=== PATIENT | female | born 1990 | race Two or more races ===

== ENCOUNTER 2021-09-30 15:24 | Emergency (ER) | payer BC ==
[2021-09-30 15:36] VITALS: TEMP 98.1
[2021-09-30] MEDS ORDERED: SODIUM CHLORIDE 0.9% 1,000 ML IV STA (17:08)
[2021-09-30] MEDS ORDERED: ONDANSETRON 4 MG/2 ML VIAL IVP STA (17:35)
[2021-09-30 18:15] VITALS: BP 121/79; PULSE 85; RESP 16
[2021-09-30 18:18] LABS: Basophils % (A) 0 %; Eosinophils # (A) 0.2 k/uL (0-0.7); Eosinophils % (A) 2 %; HGB 13.4 gm/dL (11.4-16.0); Lymphocytes # (A) 2.2 k/uL (1.0-4.8); Lymphocytes % (A) 22 %; MCH 27.7 pg (25.0-35.0); MCHC 31.9 g/dL (31.0-37.0); MCV 86.9 fL (80.0-100.0); Mean Platelet Volume 8.9; Monocytes # (A) 0.5 k/uL (0-1.0); Monocytes % (A) 5 %; Neutrophils # (A) 7.1 k/uL (1.3-7.7); Neutrophils % (A) 71 %; Platelet Count 298 k/uL (150-450); RBC 4.83 m/uL (3.80-5.40); RDW 13.4 % (11.5-15.5)
[2021-09-30 18:26] LABS: INR 0.9 (<1.2); Partial Thromboplastin Time 23.5 sec (22.0-30.0); Prothrombin Time 9.6 sec (9.0-12.0)
[2021-09-30 18:33] LABS: ALT 21 U/L (4-34); AST 29 U/L (14-36); African American GFR (CKD) >90 (>60 ml/min/1.73 sqM); Alkaline Phosphatase 78 U/L (38-126); Amylase 95 U/L (30-110); Anion Gap 10 mmol/L; Blood Urea Nitrogen 10 mg/dL (7-17); Calcium 10.1 mg/dL (8.4-10.2); Carbon Dioxide 25 mmol/L (22-30); Chloride 103 mmol/L (98-107); Glucose 91 mg/dL (74-99); Lipase 50 U/L (23-300); Non-African American GFR(CKD) >90 (>60 ml/min/1.73 sqM); Potassium 4.2 mmol/L (3.5-5.1); Sodium 138 mmol/L (137-145); Total Bilirubin 0.8 mg/dL (0.2-1.3); Total Protein 8.7 g/dL (6.3-8.2)
[2021-09-30 19:06] LABS: HCG,Qualitative Serum Not Detected
--- NOTE | 2021-09-30 19:44 | ED ---
General Adult HPI - General Chief complaint: GI Bleed Stated complaint: Rectal Bleeding Time Seen by Provider: 09/30/21 17:07 Source: patient Mode of arrival: ambulatory Limitations: no limitations - History of Present Illness Initial comments: Patient is a 31-year-old female who recently immigrated from [place] presents emergency Department complaining of GI bleed. As noticed some mild bright red blood per rectum is located on the paper and around her stool the last few days. Associated with this some mild nausea. Does have some painful stooling, however denies constipation. Denies any changes in urination. Denies being . Endorses nausea but no episodes of emesis. Denies chest pain or shortness breath. Denies any fevers. States this is not occurred previously. Is not on blood thinners. Presents for further evaluation and she is uncertain what is causing it. No known past medical history.Denies any lightheadedness. Denies any syncopal episodes. - Related Data Previous Rx's Medication Instructions Recorded Docusate Sodium [Dok] 100 mg PO BID 14 Days #28 capsule 09/30/21 Ondansetron Odt [Zofran Odt] 4 mg PO Q8HR PRN 3 Days #9 tab 09/30/21 Allergies Allergy/AdvReac Type Severity Reaction Status Date / Time No Known Allergies Allergy Verified 09/30/21 15:36 Review of Systems ROS Statement: Those systems with pertinent positive or pertinent negative responses have been documented in the HPI. Review of Systems: CONST: Denies fever EYES: Denies blurry vision ENT: Denies nasal congestion C/V: Denies Chest pain RESP: Denies shortness of breath GI: Denies abdominal pain : Denies dysuria SKIN: Denies rash. MSK: Denies joint pain. NEURO: Denies headache ROS Other: All systems not noted in ROS Statement are negative. Past Medical History Past Medical History: No Reported History History of Any Multi-Drug Resistant Organisms: None Reported Past Surgical History: No Surgical Hx Reported Past Psychological History: No Psychological Hx Reported Smoking Status: Never smoker Past Alcohol Use History: None Reported Past Drug Use History: None Reported General Exam - General Exam Comments Initial Comments: General: Appears in no acute distress. HEAD: Normal with no signs of head trauma. EYES: PERRLA, EOMI, conjunctiva normal, no discharge. No conjunctival pallor. ENT: Hearing grossly intact, normal oropharynx. RESPIRATORY: Clear breath sounds bilaterally. No wheezes, rales, or rhonchi. C/V: Regular rate and rhythm. S1 and S2 auscultated, no edema, peripheral pulses 2+ and intact throughout ABD: Abd is soft, nontender, nondistended. Rectal exam performed in the presence of a female staff member. Patient does have external hemorrhoids present. Not actively bleeding. Good rectal tone. No gross blood on exam. Occult was sent for evaluation. EXT: Normal range of motion, no obvious deformity SKIN: No rashes or lesions observed on exposed skin. NEURO: Alert and oriented 4. No focal deficits. Limitations: no limitations Course Vital Signs 09/30/21 09/30/21 15:34 18:13 Temperature 98.1 F Pulse Rate 111 H 85 Respiratory 20 16 Rate Blood Pressure 129/82 121/79 O2 Sat by Pulse 100 100 Oximetry Medical Decision Making - Medical Decision Making Based on the patient's presentation and physical exam, I'm concerned for possible GI bleed. She does have external hemorrhoids. Does not appear to be significant as the patient is relatively minor symptoms otherwise. Vital signs within normal limits. Recommended abdominal laboratory studies, fecal occult blood. She was in agreement this plan. We'll provide her with a 1 L fluid bolus as well as Zofran. Laboratory studies remarkable for hemoglobin within normal limits at 13.4. Coags were within normal limits. Printed test is negative. Remainder the labs are unremarkable. Stool occult blood is positive. I discussed the findings with the patient as well as her . Discussed that it could be secondary to hemorrhoids but no Definite cause at this time. Patient is stable, with stable hemoglobin is within normal limits. I do not believe she needs to be admitted at this time but did recommend follow-up with her PCP. Also recommended that we start her on stool softeners and I will provide her with odt Zofran. She was in agreement this plan. I will provide the patient with a prescription for ODT Zofran, docusate. I instructed the patient to follow up with their PCP in the next 1-3 days. I provided contact information for follow up with a new PCP who will connect her with a GI doctor. I explained that the patient should return to the emergency department if they experience any worsening symptoms. Strict return precautions were discussed with the patient. The patient expressed understanding of these in structions. I answered all questions that the patient had. The patient was discharged home in good condition with their prescriptions and follow up information. - Lab Data Result diagrams: 09/30/21 17:58 09/30/21 17:58 Lab Results 09/30/21 09/30/21 09/30/21 Range/Units 17:58 17:58 17:58 WBC 10.0 (3.8-10.6) k/uL RBC 4.83 (3.80-5.40) m/uL Hgb 13.4 (11.4-16.0) gm/dL Hct 42.0 (34.0-46.0) % MCV 86.9 (80.0-100.0) fL MCH 27.7 (25.0-35.0) pg MCHC 31.9 (31.0-37.0) g/dL RDW 13.4 (11.5-15.5) % Plt Count 298 (150-450) k/uL MPV 8.9 Neutrophils % 71 % Lymphocytes % 22 % Monocytes % 5 % Eosinophils % 2 % Basophils % 0 % Neutrophils # 7.1 (1.3-7.7) k/uL Lymphocytes # 2.2 (1.0-4.8) k/uL Monocytes # 0.5 (0-1.0) k/uL Eosinophils # 0.2 (0-0.7) k/uL Basophils # 0.0 (0-0.2) k/uL PT 9.6 (9.0-12.0) sec INR 0.9 (<1.2) APTT 23.5 (22.0-30.0) sec Sodium 138 (137-145) mmol/L Potassium 4.2 (3.5-5.1) mmol/L Chloride 103 (98-107) mmol/L Carbon Dioxide 25 (22-30) mmol/L Anion Gap 10 mmol/L BUN 10 (7-17) mg/dL Creatinine 0.65 (0.52-1.04) mg/dL Est GFR (CKD-EPI)AfAm >90 (>60 ml/min/1.73 sqM) Est GFR (CKD-EPI)NonAf >90 (>60 ml/min/1.73 sqM) Glucose 91 (74-99) mg/dL Calcium 10.1 (8.4-10.2) mg/dL Total Bilirubin 0.8 (0.2-1.3) mg/dL AST 29 (14-36) U/L ALT 21 (4-34) U/L Alkaline Phosphatase 78 (38-126) U/L Total Protein 8.7 H (6.3-8.2) g/dL Albumin 5.0 (3.5-5.0) g/dL Amylase 95 (30-110) U/L Lipase 50 (23-300) U/L HCG, Qual Not Detected Stool Occult Blood (Negative) 09/30/21 Range/Units 17:58 WBC (3.8-10.6) k/uL RBC (3.80-5.40) m/uL Hgb (11.4-16.0) gm/dL Hct (34.0-46.0) % MCV (80.0-100.0) fL MCH (25.0-35.0) pg MCHC (31.0-37.0) g/dL RDW (11.5-15.5) % Plt Count (150-450) k/uL MPV Neutrophils % % Lymphocytes % % Monocytes % % Eosinophils % % Basophils % % Neutrophils # (1.3-7.7) k/uL Lymphocytes # (1.0-4.8) k/uL Monocytes # (0-1.0) k/uL Eosinophils # (0-0.7) k/uL Basophils # (0-0.2) k/uL PT (9.0-12.0) sec INR (<1.2) APTT (22.0-30.0) sec Sodium (137-145) mmol/L Potassium (3.5-5.1) mmol/L Chloride (98-107) mmol/L Carbon Dioxide (22-30) mmol/L Anion Gap mmol/L BUN (7-17) mg/dL Creatinine (0.52-1.04) mg/dL Est GFR (CKD-EPI)AfAm (>60 ml/min/1.73 sqM) Est GFR (CKD-EPI)NonAf (>60 ml/min/1.73 sqM) Glucose (74-99) mg/dL Calcium (8.4-10.2) mg/dL Total Bilirubin (0.2-1.3) mg/dL AST (14-36) U/L ALT (4-34) U/L Alkaline Phosphatase (38-126) U/L Total Protein (6.3-8.2) g/dL Albumin (3.5-5.0) g/dL Amylase (30-110) U/L Lipase (23-300) U/L HCG, Qual Stool Occult Blood Positive H (Negative) Disposition Clinical Impression: GI bleed, External hemorrhoid, Fecal occult blood test positive Disposition: HOME SELF-CARE Condition: Good Instructions (If sedation given, give patient instructions): Gastrointestinal Bleeding (ED) Prescriptions: Docusate Sodium [Dok] 100 mg PO BID 14 Days #28 capsule Ondansetron Odt [Zofran Odt] 4 mg PO Q8HR PRN 3 Days #9 tab PRN Reason: Nausea Is patient prescribed a controlled substance at d/c from ED?: No Referrals: None,Stated [Primary Care Provider] - 1-2 days Claudia Turpin MD [REFERRING] - 1-2 days Time of Disposition: 19:30
== END 2021-09-30 21:01 | disposition home or self-care (01) ==
LOC: EC 15:24
DX: K64.4 Residual hemorrhoidal skin tags (principal)
CPT/HCPCS: 99284; 96374; 96361; 36415; 80053; 82150; 83690; 85025; 85610; 85730; 82272; 84703; J2405

== ENCOUNTER 2022-10-23 15:52 | Emergency (ER) | payer BC ==
[2022-10-23 17:23] VITALS: RESP 18; TEMP 98.3
--- NOTE | 2022-10-23 17:23 | ED ---
Abdominal Pain HPI - General Chief Complaint: Abdominal Pain Stated Complaint: abd pain,5 weeks preg Time Seen by Provider: 10/23/22 16:57 Source: patient, family Mode of arrival: ambulatory Limitations: no limitations - History of Present Illness Initial Comments: Patient is a 32 year female who has a history of hemorrhoids but otherwise healthy presents emergency room with complaint by her for abdominal pain and . Patient is roughly 6 weeks and presents with diffuse abdominal pain for the last 4 days. Patient states that the pain moves around. She denies any nausea vomiting dysuria, hematuria or urinary frequency. Denies any cough congestion fevers. Denies any vaginal bleeding or vaginal discharge. Patient is taking vitamins. last menstrual period September 10. Patient is unable to get in with the OBGYN at this time, she is on a waitlist. She is O+. Location: diffuse - Related Data Previous Rx's Medication Instructions Recorded Docusate Sodium [Dok] 100 mg PO BID 14 Days #28 capsule 09/30/21 Ondansetron Odt [Zofran Odt] 4 mg PO Q8HR PRN 3 Days #9 tab 09/30/21 Allergies Allergy/AdvReac Type Severity Reaction Status Date / Time No Known Allergies Allergy Verified 10/23/22 16:11 Review of Systems ROS Statement: Those systems with pertinent positive or pertinent negative responses have been documented in the HPI. ROS Other: All systems not noted in ROS Statement are negative. Gastrointestinal: Reports: abdominal pain Past Medical History Past Medical History: No Reported History History of Any Multi-Drug Resistant Organisms: None Reported Past Surgical History: No Surgical Hx Reported Past Psychological History: No Psychological Hx Reported Smoking Status: Never smoker Past Alcohol Use History: None Reported Past Drug Use History: None Reported General Exam Limitations: no limitations General appearance: alert, in no apparent distress Head exam: Present: atraumatic Eye exam: Present: normal appearance ENT exam: Present: normal exam Neck exam: Present: normal inspection Respiratory exam: Present: normal lung sounds bilaterally Cardiovascular Exam: Present: regular rate, normal rhythm GI/Abdominal exam: Present: other (mild distention, no significant pain with palpation, no rebound tenderness or peritoneal signs) Neurological exam: Present: alert, altered, oriented X3 Psychiatric exam: Present: normal affect Skin exam: Present: warm, dry Course Vital Signs 10/23/22 10/23/22 10/23/22 16:12 17:22 18:32 Temperature 97.8 F 98.3 F Pulse Rate 84 83 81 Respiratory 16 18 18 Rate Blood Pressure 119/70 104/69 106/73 O2 Sat by Pulse 100 100 100 Oximetry - Reevaluation(s) Reevaluation #1: 10/23/22 18:22 Discussed patient's labs and ultrasound. As the patient has no intrauterine mass with no developed pole or heart tones at this time patient will need reevaluation including serial hCG quantitative and repeat ultrasound in about one week. I did discuss following up with PCP or [facility] for reevaluation. Discussed signs to return to the emergency room. I did speak with attending physician Dr. Sanchez regarding patient's symptoms are Pending disposition. Medical Decision Making - Medical Decision Making Was pt. sent in by a medical professional or institution (, PA, PRACTICE MANAGEMENT CONSULTANT, urgent care, hospital, or care home...) When possible be specific @ -Sent in by PCP as she is on a waitlist for OBs Did you speak to anyone other than the patient for history (EMS, parent, family, police, friend...)? What history was obtained from this source @ - Did you review nursing and triage notes (agree or disagree)? Why? @ -[I reviewed and agree with nursing and triage notes] Were old charts reviewed (outside hosp., previous admission, EMS record, old EKG, old radiological studies, urgent care reports/EKG's, care home records)? Report findings @ -Yesterday old charts are reviewed Differential Diagnosis (chest pain, altered mental status, abdominal pain women, abdominal pain men, vaginal bleeding, weakness, fever, dyspnea, syncope, headache, dizziness, GI bleed, back pain, seizure, CVA, palpatations, mental health, musculoskeletal)? @ -Urinary tract infection, changes, threatened , incomplete EKG interpreted by me (3pts min.). @ -[As above] X-rays interpreted by me (1pt min.). @ -[None done] CT interpreted by me (1pt min.). @ -[None done] U/S interpreted by me (1pt. min.). @ -No obvious masses however radiology report is pending for confirmation of acute changes and intrauterine as my review is limited What testing was considered but not performed or refused? (CT, X-rays, U/S, labs)? Why? @ -[None] What meds were considered but not given or refused? Why? @ -[None] Did you discuss the management of the patient with other professionals (professionals i.e. , PA, PRACTICE MANAGEMENT CONSULTANT, lab, RT, psych nurse, school social worker, community health outreach worker, teacher, chief merchandising officer, case loader operator)? Give summary @ -Spoke with attending ED physician Dr Sanchez regarding patient's symptoms workup and management today. Was smoking cessation discussed for >3mins.? @ -[No] Was critical care preformed (if so, how long)? @ -[No] Were there social determinants of health that impacted care today? How? (Homelessness, low income, unemployed, alcoholism, drug addiction, transportation, low edu. Level, literacy, decrease access to med. care, detention, rehab)? @ -[No] Was there de-escalation of care discussed even if they declined (Discuss DNR or withdrawal of care, Hospice)? DNR status @ -[No] What co-morbidities impacted this encounter? (DM, HTN, Smoking, COPD, CAD, Cancer, CVA, ARF, Chemo, Hep., AIDS, mental health diagnosis, sleep apnea, morbid obesity)? @ -[None] Was patient admitted / discharged? Hospital course, mention meds given and route, prescriptions, significant lab abnormalities, going to OR and other pertinent info. @ -Patient discharged home as she may follow up with [facility] as an outpatient or PCP. She understands she is to follow-up for serial hCG quantitative and re peat ultrasound. She does understand signs to return to the emergency room including but not limited to any worsening pain, heavy vaginal bleeding, near syncope, dizziness or new concerning symptoms. Undiagnosed new problem with uncertain prognosis? @ -Yes, early versus ectopic versus threatened Drug Therapy requiring intensive monitoring for toxicity (Heparin, Nitro, Insulin, Cardizem)? @ -[No] Were any procedures done? @ -[No] Diagnosis/symptom? @ -Abdominal pain and , threatened , early versus ectopic Acute, or Chronic, or Acute on Chronic? @ -Acute Uncomplicated (without systemic symptoms) or Complicated (systemic symptoms)? @ -Complicated Side effects of treatment? @ -[No] Exacerbation, Progression, or Severe Exacerbation? @ -[No] Poses a threat to life or bodily function? How? (Chest pain, [place], [place], pneumonia, PE, COPD, DKA, ARF, appy, cholecystitis, CVA, Diverticulitis, Homicidal, Suicidal, threat to staff... and all critical care pts) @ -[No] - Lab Data Result diagrams: 10/23/22 17:23 10/23/22 17:23 Lab Results 10/23/22 10/23/22 10/23/22 Range/Units 17: 17: 17:23 WBC 7.4 (3.8-10.6) k/uL RBC 4.05 (3.80-5.40) m/uL Hgb 11.8 (11.4-16.0) gm/dL Hct 34.7 (34.0-46.0) % MCV 85.7 (80.0-100.0) fL MCH 29.1 (25.0-35.0) pg MCHC 34.0 (31.0-37.0) g/dL RDW 13.9 (11.5-15.5) % Plt Count 259 (150-450) k/uL MPV 9.1 Neutrophils % 59 % Lymphocytes % 34 % Monocytes % 4 % Eosinophils % 2 % Basophils % 1 % Neutrophils # 4.4 (1.3-7.7) k/uL Lymphocytes # 2.5 (1.0-4.8) k/uL Monocytes # 0.3 (0-1.0) k/uL Eosinophils # 0.1 (0-0.7) k/uL Basophils # 0.0 (0-0.2) k/uL Sodium 136 L (137-145) mmol/L Potassium 3.9 (3.5-5.1) mmol/L Chloride 102 (98-107) mmol/L Carbon Dioxide 25 (22-30) mmol/L Anion Gap 9 mmol/L BUN 7 (7-17) mg/dL Creatinine 0.57 (0.52-1.04) mg/dL Est GFR (CKD-EPI)AfAm >90 (>60 ml/min/1.73 sqM) Est GFR (CKD-EPI)NonAf >90 (>60 ml/min/1.73 sqM) Glucose 100 H (74-99) mg/dL Calcium 9.4 (8.4-10.2) mg/dL Total Bilirubin 0.6 (0.2-1.3) mg/dL AST 24 (14-36) U/L ALT 21 (4-34) U/L Alkaline Phosphatase 75 (38-126) U/L Total Protein 8.0 (6.3-8.2) g/dL Albumin 4.3 (3.5-5.0) g/dL HCG, Quant 9167.4 mIU/mL Urine Color Colorless Urine Appearance Clear (Clear) Urine pH 5.5 (5.0-8.0) Ur Specific [place] <1.005 (1.001-1.035) Urine Protein Negative (Negative) Urine Glucose (UA) Negative (Negative) Urine Ketones Negative (Negative) Urine Blood Trace (Negative) Urine Nitrite Negative (Negative) Urine Bilirubin Negative (Negative) Urine Urobilinogen <2.0 (<2.0) mg/dL Ur Leukocyte Esterase Negative (Negative) Urine RBC 1 (0-5) /hpf Urine WBC 1 (0-5) /hpf Ur Squamous Epith Cells 1 (0-4) /hpf - Radiology Data Radiology results: report reviewed, image reviewed Disposition Clinical Impression: Threatened , Abdominal pain affecting , Intussusception of intestine, with early threatened Narrative: Follow up with OBGYN or PCP for serial hcg quant levels x3 and repeat US in about 1 week-10 days. RETURN TO THE ED FOR UNCONTROLLED PAIN, CONTROLLED VAGINAL BLEEDING, DIZZINESS, PASSING OUT OR NEW CONCERNING SYMPTOMS Disposition: HOME SELF-CARE Condition: Good Instructions (If sedation given, give patient instructions): Threatened Miscarriage (ED), Abdominal Pain in (ED) Additional Instructions: Follow up with OBGYN or PCP for serial hcg quant levels x3 and repeat US in about 1 week-10 days. RETURN TO THE ED FOR UNCONTROLLED PAIN, CONTROLLED VAGINAL BLEEDING, DIZZINESS, PASSING OUT OR NEW CONCERNING SYMPTOMS HCG Quant today 9100 Is patient prescribed a controlled substance at d/c from ED?: No Referrals: Hilary Dick MD [Primary Care Provider] - 1-2 days Mallory Scott MD [STAFF PHYSICIAN] - 1-2 days (follow up with OBGYN referral or your PCP for serial hcg quants and repeat US) Time of Disposition: 06:35 (patient will be discharged home with OBGYN follow up) Decision to Admit Reason: Admit from EC
[2022-10-23 17:32] LABS: Basophils % (A) 1 %; Eosinophils # (A) 0.1 k/uL (0-0.7); Eosinophils % (A) 2 %; HCT 34.7 % (34.0-46.0); HGB 11.8 gm/dL (11.4-16.0); Lymphocytes # (A) 2.5 k/uL (1.0-4.8); Lymphocytes % (A) 34 %; MCH 29.1 pg (25.0-35.0); MCV 85.7 fL (80.0-100.0); Mean Platelet Volume 9.1; Monocytes # (A) 0.3 k/uL (0-1.0); Monocytes % (A) 4 %; Neutrophils # (A) 4.4 k/uL (1.3-7.7); Neutrophils % (A) 59 %; Platelet Count 259 k/uL (150-450); RBC 4.05 m/uL (3.80-5.40); RDW 13.9 % (11.5-15.5); WBC 7.4 k/uL (3.8-10.6)
[2022-10-23 17:38] LABS: Appearance,Urine Clear (Clear); Color,Urine Colorless
[2022-10-23 17:39] LABS: Bilirubin,Urine Negative (Negative); Blood,Urine Trace (Negative); Glucose,Urine (UA) Negative (Negative); Ketones,Urine Negative (Negative); Leukocyte Esterase,Urine Negative (Negative); Nitrite,Urine Negative (Negative); PH, Urine 5.5 (5.0-8.0); Protein,Urine Negative (Negative); Specific Gravity,Urine <1.005 (1.001-1.035); Urobilinogen,Urine <2.0 mg/dL (<2.0)
[2022-10-23 17:55] LABS: ALT 21 U/L (4-34); AST 24 U/L (14-36); African American GFR (CKD) >90 (>60 ml/min/1.73 sqM); Albumin 4.3 g/dL (3.5-5.0); Alkaline Phosphatase 75 U/L (38-126); Anion Gap 9 mmol/L; Blood Urea Nitrogen 7 mg/dL (7-17); Calcium 9.4 mg/dL (8.4-10.2); Carbon Dioxide 25 mmol/L (22-30); Chloride 102 mmol/L (98-107); Glucose 100 mg/dL (74-99); Non-African American GFR(CKD) >90 (>60 ml/min/1.73 sqM); Potassium 3.9 mmol/L (3.5-5.1); RBC,Urine 1 /hpf (0-5); Sodium 136 mmol/L (137-145); Squamous Epithelial Cell,Urine 1 /hpf (0-4); Total Bilirubin 0.6 mg/dL (0.2-1.3); WBC,Urine 1 /hpf (0-5)
--- NOTE | 2022-10-23 18:07 | US ---
EXAMINATION TYPE: Transabdominal DATE OF EXAM: 10/23/2022 5:50 PM COMPARISON: NONE CLINICAL INDICATION: Female, 32 years old with history of abdominal pain in ; Pt states gene ralized abd pain x 3 days. . EXAM PERFORMED: Transabdominal (TA). Pt refused transvaginal exam EXAM MEASUREMENTS: GESTATIONAL AGE / DATING Physician Established: Not yet established Dates by LMP: 09/10/22 (6 weeks/1 days) EDC: 06/17/23 Dates by First Scan: No previous this is first scan Dates by Current Scan for: Unable to date by today's study MATERNAL ANATOMY Uterus: 13.0 x 10.4 x 9.5cm. Large hypoechoic heterogeneous mass seen in ut measuring 6.9 x 5.8 x 6.4 cm. Right Ovary: Not seen Left Ovary: 4.7 x 3.8 x 2.5cm Post CDS / Adnexa: wnl Presence of free fluid: No Presence of corpus luteal cyst: Possibly one in lt ovary measuring 2.4 x 2.0 x 1.6cm Presence of subchorionic bleed: No GESTATION / SURVEY CRL: Not seen MSD: 1.01cm (5 weeks/0 days) Yolk Sac (normal less than 6mm): Not seen Date of LMP: 09/10/22 Beta HcG (if available): Pending Anechoic area seen in endometrium area possibly representing the gestational sac. Large hypoechoic ma ss seen in Ut measuring 6.9 x 5.8 x 6.4cm. IMPRESSION: Small anechoic intrauterine cystic structure without evidence for yolk sac or pole at this time . This is thought to represent an early gestational sac with a positive beta hCG, however ectopic pre gnancy and abnormal intrauterine cannot be ruled out based on this exam alone. Follow-up [facility] and home pelvic ultrasound in 7-10 days and serial beta-hCG studies are recommended to en sure further deve lopment of the fetus.
[2022-10-23 18:12] LABS: HCG,Quantitative Serum 9167.4 mIU/mL
[2022-10-23 18:33] VITALS: BP 106/73; PULSE 81
== END 2022-10-23 19:09 | disposition home or self-care (01) ==
LOC: EC 15:52
DX: O20.0 Threatened abortion (principal); O99.611 Diseases of the digestive system complicating pregnancy, first trimester; K56.1 Intussusception; Z3A.01 Less than 8 weeks gestation of pregnancy
CPT/HCPCS: 36415; 76801; 80053; 81001; 84702; 85025; 99285

== ENCOUNTER 2023-01-19 13:00 | Outpatient (CLI) | payer BC ==
[2023-01-19 14:29] VITALS: BP 128/70; PULSE 94; RESP 18; TEMP 97.6
--- NOTE | 2023-03-19 16:15 | P.MSEPDOC ---
Presenting Problems - Arrival Data Date of Arrival on Unit: 01/19/23 Time of Arrival on Unit: 13:00 Mode of Transport: Ambulatory - Complaint OB-Reason for Admission/Chief Complaint: Vaginal Bleeding Comment: vaginal spotting since 1244 and cramping this AM Medical History - Information : 1 Para: 0 Term: 0 : 0 Abortions: Spontaneous or Elective: 0 Number of Living Children: 0 - Gestational Age Gestational Age by IKER (wks/days): 18 Weeks and 5 Days Review of Systems - Review of Systems Constitutional: No problems Breast: No problems ENT: No problems Cardiovascular: No problems Respiratory: No problems Gastrointestinal: No problems Genitourinary: No problems Musculoskeletal: No problems Neurological: No problems Skin: No problems Vital Signs - Temperature Temperature: 97.6 F Temperature Source: Temporal Artery Scan - Pulse Pulse Oximetery Pulse Rate: 94 Pulse Assessment Method: Pulse Oximetry - Respirations Respiratory Rate: 18 Oxygen Delivery Method: Room Air O2 Sat by Pulse Oximetry: 98 - Blood Pressure Right Arm Blood Pressure: 128/70 Blood Pressure Mean: 89 Blood Pressure Source: Automatic Cuff Medical Screen Scoring - Assessment - Baby A Baseline FHR: 140 Physician Notification - Physician Notified Physician Notified Date: 01/19/23 Physician Notified Time: 13:29 Physician: Demetrice Schuster New Order Received: Yes - Notification Comment Comment: Dr. Schuster called, report given on maternal complaints of light vaginal bleeding since 1244 and cramping this morning. Pt denies intercourse/trauma. Maternal vitals WNL, FHR 140s, pink vaginal discharge noted upon exam, no pain/cramping at this time, and abdomen is soft to palpation. Orders to observe for additional bleeding for 1 hr and if no further bleeding, discharge home on pelvic rest with instructions to follow up next week. Maternal Triage Index - Maternal Triage Index Presenting for scheduled procedure w/no complaint: No - Stat/Priority 1 Stat Priority 1: No - Urgent/Priority 2 Urgent Priority 2: Yes Provider Notified: Demetrice Schuster Provider Notified Time: 13:29 Criteria Met for Priority 2: 18 5/7wks, vaginal spotting since 1244 and cramping this AM Disposition - Disposition OB Disposition: Discharge to home Discharge Date: 01/19/23 Discharge Time: 14:00 I agree with the RN Medical Screening Exam: Yes Case reviewed; plan agreed upon as documented in EMR&OBIX.: Yes Diagnosis: RELATED CONDITIONS, UNSPECIFIED, SECOND TRIMESTER
== END 2023-01-19 14:00 | disposition home or self-care (01) ==
LOC: FBPOP 13:00
PROVIDERS: ATTEND Obstetrics & Gynecology Obstetrics
DX: O26.852 Spotting complicating pregnancy, second trimester (principal); Z3A.18 18 weeks gestation of pregnancy
CPT/HCPCS: 99213

== ENCOUNTER 2023-06-11 06:00 | Inpatient (IN) | payer BC ==
[2023-06-11] MEDS ORDERED: miSOPROStoL 200 MCG TAB PO PRN (06:40)
[2023-06-11] MEDS ORDERED: TERBUTALINE 1 MG/ML VIAL SQ PRN (06:40)
[2023-06-11] MEDS ORDERED: OXYTOCIN 10 UNIT/ML 1 ML VIAL IM PRN (06:40)
[2023-06-11] MEDS ORDERED: TRANEXAMIC 1,000 MG/100ML-NACL 1,000 MG in EMPTY BAG 1 BAG IV PRN (06:40)
[2023-06-11] MEDS ORDERED: CARBOPROST TROMETHAMINE 250 MCG/ML 1 ML AMP IM PRN (06:40)
[2023-06-11] MEDS ORDERED: METHYLERGONOVINE 0.2 MG/ML 1 ML AMP IM PRN (06:40)
[2023-06-11] MEDS: LACTATED RINGERS 1,000 ML IV SCH (06:53)
[2023-06-11 07:09] LABS: Basophils % (A) 0 %; Eosinophils % (A) 0 %; HCT 35.9 % (34.0-46.0); HGB 11.5 gm/dL (11.4-16.0); Lymphocytes # (A) 2.7 k/uL (1.0-4.8); Lymphocytes % (A) 29 %; MCH 27.5 pg (25.0-35.0); MCV 86.1 fL (80.0-100.0); Mean Platelet Volume 9.9; Monocytes # (A) 0.3 k/uL (0-1.0); Monocytes % (A) 3 %; Neutrophils # (A) 6.2 k/uL (1.3-7.7); Neutrophils % (A) 66 %; Platelet Count 253 k/uL (150-450); RBC 4.17 m/uL (3.80-5.40); RDW 15.6 % (11.5-15.5); WBC 9.4 k/uL (3.8-10.6)
[2023-06-11] MEDS: NALBUPHINE 10 MG/ML (10 ML MDV) IV PRN (08:56)
[2023-06-11] MEDS: OXYTOCIN 30 UNITS/500 ML NS 30 UNIT in SALINE 1 500ML.BAG IV SCH (11:26)
--- NOTE | 2023-06-11 11:48 | P.HPOB ---
History of Present Illness H&P Date: 06/11/23 Chief Complaint: Elective induction of labor 32 year old at 39 weeks and 1 day with EDC of 06/17/2023 by LMP consistent with 8 week US who presents for elective induction of labor. Her has been essentially uncomplicated. 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 The fetus is estimated in the 64%ile based on a 33 week growth US. work-up: Blood type O positive, antibody negative, rubella NON-IMMUNE, VDRL non-reactive, HBsAg negative, HIV negative, HCV Ab non-reactive, gonorrhea negative, chlamydia negative, 1 hour GTT negative. GBS positive. s/p TDap vaccine. Past Medical History Past Medical History: No Reported History History of Any Multi-Drug Resistant Organisms: None Reported Past Surgical History: No Surgical Hx Reported Past Anesthesia/Blood Transfusion Reactions: No Reported Reaction Past Psychological History: No Psychological Hx Reported Smoking Status: Never smoker Past Alcohol Use History: None Reported Past Drug Use History: None Reported - Past Family History Father Family Medical History: No Reported History Medications and Allergies Home Medications Medication Instructions Recorded Confirmed Type RX: Pnv No.154/Iron Fum/Folic Acid 1 capsule PO DAILY 01/19/23 06/11/23 History [ Plus Vitamin Tablet] Allergies Allergy/AdvReac Type Severity Reaction Status Date / Time No Known Allergies Allergy Verified 01/19/23 13:06 Exam Intake and Output 06/10/23 06/11/23 06/11/23 22:59 06:59 14:59 Other: Weight 87.543 kg Focused physical exam is performed. This is a healthy-appearing in no apparent distress. Breathing is non-labored. Abdomen is gravid and non-tender. Cervical exam is fingertip cm, 0% effacement, -3 station. A cooks catheter is placed with 60cc in each balloon using the speculum. Extremities non-tender and non-edematous. heart tones are Category I and tocometer is graphing irregular contractions. Results Result Diagrams: 06/11/23 06:53 Abnormal Lab Results - Last 24 Hours (Table) 06/11/23 Range/Units 06:53 RDW 15.6 H (11.5-15.5) % Assessment and Plan Assessment: 32 year old at 39 weeks and 1 day presenting for elective induction of labor Plan: Admit, clear liquid diet while cooks in place > NPO in active labor, cooks catheter x6-12 hours, IV nubain or nitrous oxide prn pain, continuous EFM and tocometer, PCN G for GBS ppx, close monitoring of patient.
[2023-06-11] MEDS: PENICILLIN G POTASSIUM 5,000,000 UNIT in DEXTROSE 5% IN WATER 100 ML IVPB STA (12:11)
[2023-06-11] MEDS: PENICILLIN G POTASSIUM 2,500,000 UNIT in DEXTROSE 5% IN WATER 100 ML IVPB SCH (16:23)
[2023-06-12] MEDS: LIDOCAINE 0.5% (PF) 5 MG/ML (50 ML SDV) SQ PRN (03:40)
[2023-06-12] MEDS ORDERED: diphenhydrAMINE 25 MG CAP PO PRN (04:22)
[2023-06-12] MEDS ORDERED: diphenhydrAMINE 50 MG CAP PO PRN (04:22)
[2023-06-12] MEDS ORDERED: ZOLPIDEM 5 MG TAB PO PRN (04:22)
[2023-06-12] MEDS ORDERED: LANOLIN CREAM 1 GM TUBE TOPICAL PRN (04:22)
[2023-06-12] MEDS ORDERED: diphenhydrAMINE 50 MG/ML 1 ML VIAL IVP PRN ×2 (04:22)
[2023-06-12] MEDS ORDERED: BENZOCAINE/MENTHOL SPRAY 1 GM/SPRAY AEROSOL TOPICAL PRN (04:22)
--- NOTE | 2023-06-12 04:22 | P.PROBDLV ---
Vaginal Delivery Note - . Vaginal Delivery Note: DATE OF SERVICE: 06/12/2023 PROCEDURE: Normal Vaginal Delivery ATTENDING: Dr. Mallory Scott MD ESTIMATED BLOOD LOSS: 400 mL FINDINGS: VMI, Apgars 7/9. Weight 7 pounds and 13 ounces (3555 grams) PROCEDURE: Ms. Sapp is a 32 year old at 39 weeks and 2 days presenting to labor and delivery for elective induction of labor. The has been essentially uncomplicated. For further details, please review the admitting H&P. Cooks catheter was placed with low dose oxytocin. The patient had spotaneous rupture of membranes at 1511 and the cooks was removed. The patient received epidural anesthesia per her request. The patient was completely dilated at 230. She pushed effectively for approximately 1 hour. A viable male infant was delivered without difficulty at 330. The was placed on the maternal abdomen and bulb suctioned. Cord was clamped and cut after a 30-second delay. The was handed off to the pediatric team. Placenta was delivered whole with gentle cord traction at 333. Oxytocin was started to facilitate uterine tone. Uterine fundus was found to be firm and below the umbilicus upon fundal massage. Thorough examination of the cervix, vagina, periurethral area, and perineum revealed a full third degree laceration. This was infiltrated with lidocaine and repaired in the usual multilayered fashion with 3-0 and 2-0 Vicryl. The patient is stable and allowed to begin the bonding process.
[2023-06-12] MEDS: ACETAMINOPHEN TAB 325 MG TAB PO PRN (06:44)
[2023-06-12] MEDS: IBUPROFEN 600 MG TAB PO PRN (08:50)
[2023-06-12] MEDS: SENNOSIDES-DOCUSATE SODIUM 1 EACH TAB PO SCH (08:51)
[2023-06-12] MEDS: MEASLES-MUMPS-RUBELLA VACC/PF 12,500 UNIT/0.5 ML VIAL SQ ONE (18:00)
--- NOTE | 2023-06-13 08:44 | P.PNOBGVD ---
Subjective - Subjective Principal diagnosis: 06/13/2023 Interval history: The patient is doing well this morning and had no acute events overnight. She has noticed some right groin weakness and that she "can't walk straight." She reports minimal lochia, passing flatus, voiding without difficulty, ambulating, and eating/drinking without nausea or vomiting. She is breast pumping for her without difficulty. She denies chest pain, shortness of breathing, fevers, or chills overnight. She denies pain or swelling in the legs. Patient reports: Reports appetite normal, Reports voiding normally, Reports pain well controlled, Reports ambulating normally : doing well, other (in nursery) Objective - Latest Vital Signs Latest vital signs: Vital Signs Temp Pulse Resp BP Pulse Ox 06/13/23 08:00 98.5 F 83 18 124/68 06/12/23 23:59 83 16 108/72 97 06/12/23 16:45 98.0 F 71 17 110/70 99 Intake and Output 06/12/23 06/13/23 06/13/23 22:59 06:59 14:59 Other: # Voids 2 1 1 - Exam Extremities: Present: normal Abdomen: Present: normal appearance, soft Uterus: Present: normal, firm Assessment and Plan Assessment: 32 year old now PPD#1 s/p vaginal delivery Plan: 1. . Patient meeting all milestones appropriately. 2. Viable male . In nursery, patients still deciding about circumcision. Dispo: Anticipate discharge home tomorrow.
[2023-06-13 08:47] LABS: Basophils % (A) 0 %; Eosinophils # (A) 0.1 k/uL (0-0.7); Eosinophils % (A) 2 %; HCT 28.4 % (34.0-46.0); HGB 8.8 gm/dL (11.4-16.0); Lymphocytes # (A) 2.5 k/uL (1.0-4.8); Lymphocytes % (A) 28 %; MCH 27.5 pg (25.0-35.0); MCHC 31.1 g/dL (31.0-37.0); MCV 88.3 fL (80.0-100.0); Monocytes # (A) 0.3 k/uL (0-1.0); Monocytes % (A) 3 %; Neutrophils # (A) 5.6 k/uL (1.3-7.7); Neutrophils % (A) 66 %; Platelet Count 199 k/uL (150-450); RBC 3.21 m/uL (3.80-5.40); RDW 15.8 % (11.5-15.5); WBC 8.6 k/uL (3.8-10.6)
[2023-06-13] MEDS: HYDROCORTISONE 2.5% RECTAL CREAM 30 GM TUBE RECTAL PRN (11:00)
--- NOTE | 2023-06-14 08:24 | P.DS ---
Providers Date of admission: 06/11/23 06:27 Expected date of discharge: 06/14/23 Attending physician: Mallory Scott MD Primary care physician: Stated None Hospital Course: Ms. Sapp is a 32 year old now PPD#2 s/p vaginal delivery after elective induction of labor at 39 weeks. The patient did sustain a third degree laceration. The patient is doing well this morning and had no acute events overnight. She does have a musculoskeletal or nerve injury to the right groin after delivery which has made her walk slightly different than before delivery. I encouraged the patient to rehabilitate the groin with walking, strethcing, and movement. If the discomfort persists, we will discuss physical therapy outpatient. She reports minimal lochia, passing flatus, voiding without difficulty, ambulating, and eating/drinking without nausea or vomiting. Infant is undergoing IV antibiotics secondary to high flow oxygen use. The infant is also getting phototherapy. is not going well with the mother, they are still working on this. She denies chest pain, shortness of breathing, fevers, or chills overnight. She denies pain or swelling in the legs. restrictions are reviewed with the patient including pelvic rest for 6 weeks. The patient is encouraged to call the office if she experiences any heavy bleeding, foul-smelling discharge, breast complaints, or any if she has any other concerns. She will be prescribed Motrin and Tylenol as needed for pain. She will follow up in the office in 6 weeks for exam. All questions are answered. Assessment: 32 year old now PPD#2 s/p vaginal delivery complicated by third degree laceration Patient Condition at Discharge: Good Plan - Discharge Summary New Discharge Prescriptions: New Ibuprofen [Motrin] 600 mg PO Q6HR PRN #30 tab PRN Reason: Mild Pain (Scale 1 To 3) Acetaminophen Tab [Tylenol] 650 mg PO Q6H PRN #30 tab PRN Reason: Mild Pain (Scale 1 To 3) No Action RX: Pnv No.154/Iron Fum/Folic Acid [ Plus Vitamin Tablet] 1 capsule PO DAILY Discharge Medication List RX: Pnv No.154/Iron Fum/Folic Acid [ Plus Vitamin Tablet] 1 capsule PO DAILY 01/19/23 [History] Acetaminophen Tab [Tylenol] 650 mg PO Q6H PRN #30 tab 06/14/23 [Rx] Ibuprofen [Motrin] 600 mg PO Q6HR PRN #30 tab 06/14/23 [Rx] Follow up Appointment(s)/Referral(s): Mallory Scott MD [STAFF PHYSICIAN] - 6 Weeks Activity/Diet/Wound Care/Special Instructions: Instructions 1. Do not begin any exercise program for 3 weeks. 2. Do not resume sexual relations for 6 weeks or longer if uncomfortable. 3. You may take tub baths or showers at any time. 4. You may use tampons if desired after 6 weeks. 5. Keep any areas repaired with stitches clean and dry. 6. If you are not nursing, wear a good fitting, supportive bra during the day and limit fluid intake for at least 1 week to prevent breast engorgement. 7. Call the office, , within the next week to make appointment for your 6 week checkup if it has not already been made. 8. Report any of the following occurrences to the doctor promptly: a. Heavy, excessive bleeding b. Chills, fever c. Burning or frequency of urination d. Pain or redness and breasts if nursing e. Increasing pain or swelling of vulva (stitches). In addition to the above instructions, the following additional should be followed: 1. No heavy lifting or straining (exercising) until after 6 week checkup. 2. Keep abdominal incision clean and dry: You may wear a dressing if more comfortable. 3. Make office appointment for 2 weeks after delivery date. Discharge Disposition: HOME SELF-CARE
[2023-06-14 12:11] VITALS: PULSE 97; RESP 14
[2023-06-14] MEDS: SIMETHICONE 80 MG CHEWABLE PO PRN (14:50)
[2023-06-14 16:37] VITALS: BP 109/71; TEMP 99
== END 2023-06-14 18:08 | disposition home or self-care (01) | DRG 768 ==
LOC: 4FBP 06:27
PROVIDERS: ADMIT Obstetrics & Gynecology; ATTEND Obstetrics & Gynecology
PROC: 0U7C7ZZ Dilation of Cervix, Via Natural or Artificial Opening (ICD-10-PCS; principal; 2023-06-11)
PROC: 3E033VJ Introduction of Other Hormone into Peripheral Vein, Percutaneous Approach (ICD-10-PCS; principal; 2023-06-11)
PROC: 3E0134Z Introduction of Serum, Toxoid and Vaccine into Subcutaneous Tissue, Percutaneous Approach (ICD-10-PCS; 2023-06-12)
PROC: 0DQR0ZZ Repair Anal Sphincter, Open Approach (ICD-10-PCS; 2023-06-12)
PROC: 10E0XZZ Delivery of Products of Conception, External Approach (ICD-10-PCS; 2023-06-12)
DX: O34.13 Maternal care for benign tumor of corpus uteri, third trimester (principal); O70.20 Third degree perineal laceration during delivery, unspecified; D25.2 Subserosal leiomyoma of uterus; O99.824 Streptococcus B carrier state complicating childbirth; O99.893 Other specified diseases and conditions complicating puerperium; R26.2 Difficulty in walking, not elsewhere classified; Z23 Encounter for immunization; Z28.310 Unvaccinated for COVID-19; Z3A.39 39 weeks gestation of pregnancy; Z37.0 Single live birth
CPT/HCPCS: 85025; 86850; 86900; 86901; 90707